=== PATIENT | female | born 1980 | race Caucasian/White ===

== ENCOUNTER 2016-11-21 17:21 | Emergency (ER) | payer OTHER ==
--- NOTE | 2016-11-21 18:14 | DIAGNOSTIC IMAGING REPORT ---
PROCEDURE: XR HAND 3 OR 4 VIEWS - RIGHT INDICATION: TRAUMA/INJURY TECHNIQUE: Four views. COMPARISON: None. FINDINGS: Soft tissue swelling around the third PIP joint. No fracture or dislocation. IMPRESSION: 1. No fracture or dislocation. Third PIP joint soft tissue swelling.
--- NOTE | 2016-11-21 18:33 | ED ORDER SUMMARY ---
..... Patient: SID CESPEDES OrderSheet [facility] VisitID: [id number] [address] [place] [address] 36y, F Registration Date/Time: 11/21/2016 ORDER SHEET Weight: 54.4 kg (stated) Allergies: Amoxicillin, Penicillins, morphine, Tramadol GENERAL ORDERS: Ice (17:44 11/21/2016 Mary R.N. verbal order read back to HBivens A.R.N.P.) (17:57 Mary R.N.) Hand 3 or 4V Right Urgent (17:45 11/21/2016 HBivens A.R.N.P.) (17:57 Mary R.N.) MEDICATION ORDERS: IV FLUIDS: ORDER SHEET NOTES: [Electronically signed by Radha Garber R.N. (18:45 11/21/2016)] [Electronically signed by Myrtle Arellano.R.N.P. (20:17 11/21/2016)] [Electronically locked/signed by Radha Garber R.N. (18:45 11/21/2016)]
--- NOTE | 2016-11-21 18:33 | ED CLINICAL REPORT ---
Clinical Report - Physicians/Mid Levels [facility] [address] [place] [address] 11/21/2016 17:23 Patient: SID CESPEDES Time Seen: 17:30; initial patient contact, initial documentation, patient care assumed. Arrived- By private vehicle. Historian- patient. HISTORY OF PRESENT ILLNESS Chief Complaint: Injury to the right hand. The injury happened just prior to arrival. Occurred at home. The patient sustained a moderate direct blow (fell on stairs, missed step, and hit hand on concrete stair). Patient is experiencing moderate pain. Patient denies injury to the head or neck. No other injury. REVIEW OF SYSTEMS The patient has had swelling. No tingling, numbness, weakness, foreign body or skin laceration. All systems otherwise negative, except as recorded above. PAST HISTORY See nurses notes. PROBLEMS: Abscess. Dental Caries. Dental Pain. Immunizations. Tooth abcess. --17:47 David Johnson RRobbN. ADDITIONAL SURGERIES: . Tubal Ligation. --17:47 David Johnson RRobbN. SOCIAL HISTORY Light tobacco smoker. No alcohol use or drug use. No recent travel. Is a local resident. FAMILY HISTORY No significant family medical history. ADDITIONAL NOTES The nursing notes have been reviewed with agreement regarding the chief complaint, HPI, ROS, PMH and patient medications and allergies. PHYSICAL EXAM Vital Signs: 11/21/2016 17:37 BP: 139/91. HR: 115. RR: 16. O2 saturation: 100%. Temp: 98.8 F. Pain level now: 10/10. Have been reviewed as abnormal and appear to be correct. Blood pressure normal. Tachycardic. Respiratory rate normal. Temperature normal. Oxygen saturation normal. Appearance: Alert. Oriented X3. No acute distress. Head: Head atraumatic. Eyes: Pupils equal, round and reactive to light. Eyes normal inspection. Respiratory: No respiratory distress. Skin: Skin warm and dry. Skin intact. Extremities: Wrist injury present. Hand injury present. Dorsal right hand: mild tenderness and swelling and small ecchymosis of the distal and ulnar aspect of the dorsal hand. Neurovascular intact distally. (tender, mild swelling and contusion noted near 5th knuckle). No erythema, laceration, abrasion, puncture wound or foreign body. No deformity. No limitation of extension. Hand and wrist exam otherwise negative. Extremities otherwise negative. Neuro, Vascular and Tendons: Vascular status intact. Sensation intact. Motor intact. Tendon function intact. Neuro: Oriented X 3. No motor deficit. No sensory deficit. Note: isolated injury to hand. LABS, X-RAYS, AND EKG X-Rays: Right hand. Rt Hand X-ray: (IMPRESSION: 1. No fracture or dislocation. Third PIP joint soft tissue swelling. Electronically Final signed by:Rogelio Clifford MD 11/21/2016 6:14:51 PM). The X-rays were interpreted by the radiologist and contemporaneously by me. PROGRESS AND PROCEDURES Course of Care: pt out in lobby, stating she can't take ultram, she is allergic to it, rx changed. Patient counseled in person regarding the patient's stable condition, test results and diagnosis. Differential Diagnosis: Other possible considerations: hand fx vs contusion. Above considerations are based on history, physical exam and laboratory data. Differential diagnosis was discussed with patient. Disposition: Discharged home in good and unchanged condition (18:20). Condition: good and stable. CLINICAL IMPRESSION Single contusion with soft tissue hematoma to the right hand. Fall on same level by slipping. INSTRUCTIONS Apply ice for 20 minutes four times a day for two days until better. Don't apply ice directly to skin. Elevate affected areas above chest level for two days until better. Warnings: GENERAL WARNINGS: Return or contact your physician immediately if your condition worsens or changes unexpectedly, if not improving as expected, or if other problems arise. Specifically return if problem worsens. Prescription Medications: Naproxen 500 mg tablets: take 1 orally every 12 hours as needed for pain. Dispense twenty (20). No refills. Gamaliel 5 mg / 325 mg tablets: take 1 orally every 6 hours as needed for pain. Dispense five (5). No refill. Follow-up: Follow up with your doctor in about one week even if well. Call for an appointment. Summary of care provided to patient. Understanding of the discharge instructions verbalized by patient. (Electronically signed by Myrtle Arellano A.R.N.P. 11/21/2016 20:17)
--- NOTE | 2016-11-21 18:33 | ED ORDER SUMMARY ---
..... Patient: SID CESPEDES OrderSheet [facility] VisitID: [id number] [address] [place] [address] 36y, F Registration Date/Time: 11/21/2016 ORDER SHEET Weight: 54.4 kg (stated) Allergies: Amoxicillin, Penicillins, morphine, Tramadol GENERAL ORDERS: Ice (17:44 11/21/2016 Mary R.N. verbal order read back to HBivens A.R.N.P.) (17:57 Mary R.N.) Hand 3 or 4V Right Urgent (17:45 11/21/2016 HBivens A.R.N.P.) (17:57 Mary R.N.) MEDICATION ORDERS: IV FLUIDS: ORDER SHEET NOTES: [Electronically signed by Radha Garber R.N. (18:45 11/21/2016)] [Electronically signed by Myrtle Arellano.R.N.P. (20:17 11/21/2016)] [Electronically locked/signed by Radha Garber R.N. (18:45 11/21/2016)]
--- NOTE | 2016-11-21 18:33 | ED NURSING NOTES ---
Clinical Report - Nurses [facility] [address] [place] [address] 11/21/2016 17:23 Patient: SID CESPEDES TRIAGE Triage time 17:35 Nov 21 2016. Acuity: LEVEL 3. Chief Complaint: INJURY TO RIGHT HAND. Alert. VENESSA COMA SCORE: [place] Coma Scale: 15- eyes open spontaneously (4); best verbal response- oriented x 4 (5); best motor response- obeys commands (6). --17:49 David Johnson R.N. 17:37 11/21/16. BP: 139/91. HR: 115. RR: 16. O2 saturation: 100% on room air. Temp: 98.8 F (oral). Pain level now: 02/17. --17:49 David Johnson R.N. Weight: 54.4 kg stated. Height/Length: 63 inches Per Patient. BMI: 21.2. --17:39 David Johnson R.N. Medications Ibuprofen Oral 800 mg, PRN. --17:41 David Johnson R.N. Medication/allergy information source: the patient. --17:49 David Johnson R.N. Allergies Amoxicillin. Definite Moderate(SOB, swelling) --17:42 David Johnson R.N. Penicillins.(SOB, swelling) --17:42 David Johnson R.N. morphine. --17:43 David Johnson R.N. Tramadol. --17:43 David Johnson R.N. History Arrived by private vehicle. Historian: patient. Accompanied by family and mother and daughter. Primary physician (none). ( GLF injuring (R) Forearm and (R) Hand going down the patio stairs.). This occurred (about 4 hours ago). Mechanism of injury: fell. She has had weakness of the right hand. 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 (last dose about 4 hours ago). PAST MEDICAL HX: Tetanus status: unknown. Immunizations: status is unknown. SOCIAL HX: Light tobacco smoker (cigarette)- less than 1/2 a pack per day. No alcohol use or drug use. No infectious disease exposure. ABUSE ASSESSMENT: No report of abuse. SELF HARM ASSESSMENT: A self harm assessment was performed. The patient answered "no" to the question "Have you recently felt down, depressed, or hopeless?" and "Have you noticed less interest or pleasure in doing things?". FALL RISK ASSESSMENT: Fall risk assessment completed. No fall risk identified. NUTRITIONAL RISK ASSESSMENT: The nutritional risk assessment revealed no deficiencies. LEARNING NEEDS ASSESSMENT: The learning needs assessment revealed no barriers. FUNCTIONAL ASSESSMENT: Functional assessment performed. 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 SKIN INTEGRITY ASSESSMENT: Skin integrity risk assessment completed. No skin integrity risk identified. --17:49 David Johnson R.N. PROBLEMS: Abscess. Dental Caries. Dental Pain. Immunizations. Tooth abcess. --17:47 David Johnson R.N. ADDITIONAL SURGERIES: . Tubal Ligation. --17:47 David Johnson R.N. Interventions ID and allergy band on patient. To treatment room. --17:49 David Johnson R.N. PHYSICAL ASSESSMENT Ambulatory to room. GENERAL / NEURO / PSYCH: Oriented X 4. Appears in pain. EXTREMITIES: Extremities exhibit normal ROM. Neuro-vascular status intact to the extremity. Right hand: tenderness and swelling. SKIN: Skin intact. Skin is warm and dry. She has an abrasion on the right hand. --17:51 David Johnson R.N. NURSING PROGRESS NOTES Cold pack applied to the right hand. Reassurance given to the patient. Patient identifiers checked. Call light placed in reach. Side rails up x 1. Patient ready for evaluation- chart flagged and SHIFT STACKER notified. --17:51 David Johnson R.N. 17:55 11/21/16. ( X-ray (R) Hand in room). --17:58 David Johnson R.N. DISPOSITION / DISCHARGE Departure time: 18:42 Nov 21 2016. Condition at departure: improved. No learning barriers present. Discharge instructions provided and reviewed with the patient. Reviewed warnings. Reviewed medication(s). Treatments reviewed. Reviewed referrals. Patient verbalized understanding. Written instructions provided in Hungarian. The patient was discharged home and accompanied by family. She left the Emergency Department ambulatory and via private vehicle. Family member driving. --18:45 Radha Garber R.N. 18:44 11/21/16. BP: 129/94. HR: 92. RR: 18. O2 saturation: 100%. Temp: 98.4 F. Pain level now 5/10. --18:45 Radha Garber R.N. Locked/Released at 11/21/2016 18:45 by Radha Garber R.N.
--- NOTE | 2016-11-21 18:33 | ED NURSING NOTES ---
Clinical Report - Nurses [facility] [address] [place] [address] 11/21/2016 17:23 Patient: SID CESPEDES TRIAGE Triage time 17:35 Nov 21 2016. Acuity: LEVEL 3. Chief Complaint: INJURY TO RIGHT HAND. Alert. VENESSA COMA SCORE: [place] Coma Scale: 15- eyes open spontaneously (4); best verbal response- oriented x 4 (5); best motor response- obeys commands (6). --17:49 David Johnson R.N. 17:37 11/21/16. BP: 139/91. HR: 115. RR: 16. O2 saturation: 100% on room air. Temp: 98.8 F (oral). Pain level now: 02/17. --17:49 David Johnson R.N. Weight: 54.4 kg stated. Height/Length: 63 inches Per Patient. BMI: 21.2. --17:39 David Johnson R.N. Medications Ibuprofen Oral 800 mg, PRN. --17:41 David Johnson R.N. Medication/allergy information source: the patient. --17:49 David Johnson R.N. Allergies Amoxicillin. Definite Moderate(SOB, swelling) --17:42 David Johnson R.N. Penicillins.(SOB, swelling) --17:42 David Johnson R.N. morphine. --17:43 David Johnson R.N. Tramadol. --17:43 David Johnson R.N. History Arrived by private vehicle. Historian: patient. Accompanied by family and mother and daughter. Primary physician (none). ( GLF injuring (R) Forearm and (R) Hand going down the patio stairs.). This occurred (about 4 hours ago). Mechanism of injury: fell. She has had weakness of the right hand. Treatment SEAL SKINNER: Ice and took ibuprofen. (last dose about 4 hours ago). PAST MEDICAL HX: Tetanus status: unknown. Immunizations: status is unknown. SOCIAL HX: Light tobacco smoker (cigarette)- less than 1/2 a pack per day. No alcohol use or drug use. No infectious disease exposure. ABUSE ASSESSMENT: No report of abuse. SELF HARM ASSESSMENT: A self harm assessment was performed. The patient answered "no" to the question "Have you recently felt down, depressed, or hopeless?" and "Have you noticed less interest or pleasure in doing things?". FALL RISK ASSESSMENT: Fall risk assessment completed. No fall risk identified. NUTRITIONAL RISK ASSESSMENT: The nutritional risk assessment revealed no deficiencies. LEARNING NEEDS ASSESSMENT: The learning needs assessment revealed no barriers. FUNCTIONAL ASSESSMENT: Functional assessment performed. 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 SKIN INTEGRITY ASSESSMENT: Skin integrity risk assessment completed. No skin integrity risk identified. --17:49 David Johnson R.N. PROBLEMS: Abscess. Dental Caries. Dental Pain. Immunizations. Tooth abcess. --17:47 David Johnson R.N. ADDITIONAL SURGERIES: . Tubal Ligation. --17:47 David Johnson R.N. Interventions ID and allergy band on patient. To treatment room. --17:49 David Johnson R.N. PHYSICAL ASSESSMENT Ambulatory to room. GENERAL / NEURO / PSYCH: Oriented X 4. Appears in pain. EXTREMITIES: Extremities exhibit normal ROM. Neuro-vascular status intact to the extremity. Right hand: tenderness and swelling. SKIN: Skin intact. Skin is warm and dry. She has an abrasion on the right hand. --17:51 David Johnson R.N. NURSING PROGRESS NOTES Cold pack applied to the right hand. Reassurance given to the patient. Patient identifiers checked. Call light placed in reach. Side rails up x 1. Patient ready for evaluation- chart flagged and SOCIAL WORK SUPERVISOR notified. --17:51 David Johnson R.N. 17:55 11/21/16. ( X-ray (R) Hand in room). --17:58 David Johnson R.N. DISPOSITION / DISCHARGE Departure time: 18:42 Nov 21 2016. Condition at departure: improved. No learning barriers present. Discharge instructions provided and reviewed with the patient. Reviewed warnings. Reviewed medication(s). Treatments reviewed. Reviewed referrals. Patient verbalized understanding. Written instructions provided in Yi. The patient was discharged home and accompanied by family. She left the Emergency Department ambulatory and via private vehicle. Family member driving. --18:45 Radha Garber R.N. 18:44 11/21/16. BP: 129/94. HR: 92. RR: 18. O2 saturation: 100%. Temp: 98.4 F. Pain level now 5/10. --18:45 Radha Garber R.N. Locked/Released at 11/21/2016 18:45 by Radha Garber R.N.
--- NOTE | 2016-11-21 20:18 | ED MAR SUMMARY ---
..... Medication Administration Record [facility] [address] [place] [id number] Patient: SID CESPEDES Visit ID: [id number] 36y, F Weight: 54.4 kg Height/Length: 63 in BMI: 21.2 ALLERGIES: morphine, Tramadol, Amoxicillin, Penicillins
--- NOTE | 2016-11-21 20:18 | ED MAR SUMMARY ---
..... Medication Administration Record [facility] [address] [place], [place] [id number] Patient: SID CESPEDES Visit ID: [id number] 36y, F Weight: 54.4 kg Height/Length: 63 in BMI: 21.2 ALLERGIES: morphine, Tramadol, Amoxicillin, Penicillins
--- NOTE | 2016-11-21 20:18 | ED MED RECONCILIATION SUMMARY ---
Patient: SID CESPEDES Medication Reconciliation Report [facility] VisitID: [id number] [address] [place] [address] 36y, F Registration Date/Time: 11/21/2016 Weight: 54.4 kg Height/Length: 63 in. BMI: 21.3 ALLERGIES: Amoxicillin, morphine, Penicillins, Tramadol The patient's Home Medications are listed below: THE FOLLOWING MEDICATIONS NEED TO BE RECONCILED: Ibuprofen Oral 800 mg, PRN The source(s) of the original Home Medication information: patient The following Medications were given to the patient in the Emergency Department: None. The following Medications were prescribed to the patient: Naproxen 500 mg tablets: take 1 orally every 12 hours as needed for pain. Dispense twenty (20). No refills. -- Myrtle Arellano, Meche.R.N.P. Blakeslee 5 mg / 325 mg tablets: take 1 orally every 6 hours as needed for pain. Dispense five (5). No refill. -- Myrtle Arellano, A.R.N.P.
--- NOTE | 2016-11-21 20:18 | ED DISCHARGE INSTRUCTIONS ---
Patient: SID CESPEDES General Instructions Merged With [facility] VisitID: [id number] [place] [address] 36y, F Registration Date/Time: 11/21/2016 Single contusion with soft tissue hematoma to the right hand. Fall on same level by slipping. INSTRUCTIONS Apply ice for 20 minutes four times a day for two days until better. Don't apply ice directly to skin. Elevate affected areas above chest level for two days until better. Warnings: GENERAL WARNINGS: Return or contact your physician immediately if your condition worsens or changes unexpectedly, if not improving as expected, or if other problems arise. Specifically return if problem worsens. Prescription Medications: Naproxen 500 mg tablets: take 1 orally every 12 hours as needed for pain. Dispense twenty (20). No refills. [place] 5 mg / 325 mg tablets: take 1 orally every 6 hours as needed for pain. Dispense five (5). No refill. Follow-up: Follow up with your doctor in about one week even if well. Call for an appointment. Summary of care provided to patient. Understanding of the discharge instructions verbalized by patient. ADDITIONAL INFORMATION Mechanical Fall You have had a fall today. It appears that the cause is mechanical. That means that you slipped, tripped or lost your balance. If your fall had been due to fainting or a seizure, further tests would be required. Home Care: Rest today and resume your normal activities when you are feeling back to normal. If you were injured during the fall, follow the advice from your doctor regarding care of your injury. You may use acetaminophen (Tylenol) or ibuprofen (Motrin, Advil) to control pain, unless another pain medicine was prescribed. [NOTE: If you have chronic liver or kidney disease or ever had a stomach ulcer or GI bleeding, talk with your doctor before using these medicines.] Fall Prevention: Was there anything that caused your fall that can be fixed, removed, or replaced? Make your home safe by keeping walkways clear of objects you may trip over. Use non-slip pads under rugs. Do not walk in poorly lit areas. Do not stand on chairs or wobbly ladders. Use caution when reaching overhead or looking upward. This position can cause a loss of balance. Be sure your shoes fit properly, have non-slip bottoms and are in good condition. Be cautious when going up and down curbs, and walking on uneven sidewalks. If your balance is poor, consider using a cane or walker. Stay as active as you can. Balance, flexibility, strength, and endurance all come from exercise. They all play a role in preventing falls. Follow Up with your doctor or as advised by our staff. Get Prompt Medical Attention if any of the following occur: Repeated mechanical falls, or unexplained falls Dizziness, fainting or seizure Severe headache Chest pain or shortness of breath Palpitations (very rapid or very slow or irregular heartbeat) Blood in vomit, stools (black or red color) Weakness of an arm or leg or one side of the face Difficulty with speech or vision Contusion: Hand You have a CONTUSION of your hand. This causes local pain, swelling and sometimes bruising. There are no broken bones. This injury takes from a few days to a few weeks to heal. Home Care: 1) Keep your arm elevated to reduce pain and swelling. This is very important during the first 48 hours. 2) Apply an ice pack (ice cubes in a plastic bag, wrapped in a towel) over the injured area for 20 minutes every 1-2 hours the first day. You should continue with ice packs 3-4 times a day for the next two days. Continue the use of ice packs for relief of pain and swelling as needed. 3) You may use acetaminophen (Tylenol) or ibuprofen (Motrin, Advil) to control pain, unless another pain medicine was prescribed. [ NOTE : If you have chronic liver or kidney disease or ever had a stomach ulcer or GI bleeding, talk with your doctor before using these medicines.] Follow Up with your doctor or this facility if you are not starting to improve within the next THREE days. [NOTE: If X-rays were taken, they will be reviewed by a radiologist. You will be notified of any new findings that may affect your care.] Get Prompt Medical Attention if any of the following occur: -- Pain or swelling increases -- Redness, warmth or drainage -- Hand or fingers becomes cold, blue, numb or tingly Naproxen Sodium Oral tablet What is this medicine? NAPROXEN (na PROX en) is a non-steroidal anti-inflammatory drug (NSAID). It is used to reduce swelling and to treat pain. This medicine may be used for dental pain, headache, or painful monthly periods. It is also used for painful joint and muscular problems such as arthritis, tendinitis, bursitis, and gout. How should I use this medicine? Take this medicine by mouth with a glass of water. Follow the directions on the prescription label. Take it with food if your stomach gets upset. Try to not lie down for at least 10 minutes after you take it. Take your medicine at regular intervals. Do not take your medicine more often than directed. Long-term, continuous use may increase the risk of heart attack or stroke. A special MedGuide will be given to you by the pharmacist with each prescription and refill. Be sure to read this information carefully each time. Talk to your distribution field engineer regarding the use of this medicine in children. Special care may be needed. What side effects may I notice from receiving this medicine? Side effects that you should report to your doctor or health child care assistant as soon as possible: black or bloody stools, blood in the urine or vomit blurred vision chest pain difficulty breathing or wheezing nausea or vomiting severe stomach pain skin rash, skin redness, blistering or peeling skin, hives, or itching slurred speech or weakness on one side of the body swelling of eyelids, throat, lips unexplained weight gain or swelling unusually weak or tired yellowing of eyes or skin Side effects that usually do not require medical attention (report to your doctor or health child care assistant if they continue or are bothersome): constipation headache heartburn What may interact with this medicine? alcohol aspirin cidofovir diuretics lithium methotrexate other drugs for inflammation like ketorolac or prednisone pemetrexed probenecid warfarin What if I miss a dose? If you miss a dose, take it as soon as you can. If it is almost time for your next dose, take only that dose. Do not take double or extra doses. Where should I keep my medicine? Keep out of the reach of children. Store at room temperature between 15 and 30 degrees C (59 and 86 degrees F). Keep container tightly closed. Throw away any unused medicine after the expiration date. What should I tell my health care provider before I take this medicine? They need to know if you have any of these conditions: asthma cigarette smoker drink more than 3 alcohol containing drinks a day heart disease or circulation problems such as heart failure or leg edema (fluid retention) high blood pressure kidney disease liver disease stomach bleeding or ulcers an unusual or allergic reaction to naproxen, aspirin, other NSAIDs, other medicines, foods, dyes, or preservatives or trying to get breast-feeding What should I watch for while using this medicine? Tell your doctor or health child care assistant if your pain does not get better. Talk to your doctor before taking another medicine for pain. Do not treat yourself. This medicine does not prevent heart attack or stroke. In fact, this medicine may increase the chance of a heart attack or stroke. The chance may increase with longer use of this medicine and in people who have heart disease. If you take aspirin to prevent heart attack or stroke, talk with your doctor or health child care assistant. Do not take other medicines that contain aspirin, ibuprofen, or naproxen with this medicine. Side effects such as stomach upset, nausea, or ulcers may be more likely to occur. Many medicines available without a prescription should not be taken with this medicine. This medicine can cause ulcers and bleeding in the stomach and intestines at any time during treatment. Do not smoke cigarettes or drink alcohol. These increase irritation to your stomach and can make it more susceptible to damage from this medicine. Ulcers and bleeding can happen without warning symptoms and can cause . You may get drowsy or dizzy. Do not drive, use machinery, or do anything that needs mental alertness until you know how this medicine affects you. Do not stand or sit up quickly, especially if you are an older patient. This reduces the risk of dizzy or fainting spells. This medicine can cause you to bleed more easily. Try to avoid damage to your teeth and gums when you brush or floss your teeth. Hydrocodone Bitartrate, Acetaminophen Oral tablet What is this medicine? ACETAMINOPHEN; HYDROCODONE (a set a SHARONDA lucretia fen; derrek droe KOE done) is a pain reliever. It is used to treat mild to moderate pain. How should I use this medicine? Take this medicine by mouth. Swallow it with a full glass of water. Follow the directions on the prescription label. If the medicine upsets your stomach, take the medicine with food or milk. Do not take more than you are told to take. Talk to your distribution field engineer regarding the use of this medicine in children. This medicine is not approved for use in children. What side effects may I notice from receiving this medicine? Side effects that you should report to your doctor or health child care assistant as soon as possible: allergic reactions like skin rash, itching or hives, swelling of the face, lips, or tongue breathing problems confusion feeling faint or lightheaded, falls stomach pain yellowing of the eyes or skin Side effects that usually do not require medical attention (report to your doctor or health child care assistant if they continue or are bothersome): nausea, vomiting stomach upset What may interact with this medicine? alcohol antihistamines isoniazid medicines for depression, anxiety, or psychotic disturbances medicines for sleep muscle relaxants naltrexone narcotic medicines (opiates) for pain phenobarbital ritonavir tramadol What if I miss a dose? If you miss a dose, take it as soon as you can. If it is almost time for your next dose, take only that dose. Do not take double or extra doses. Where should I keep my medicine? Keep out of the reach of children. This medicine can be abused. Keep your medicine in a safe place to protect it from theft. Do not share this medicine with anyone. Selling or giving away this medicine is dangerous and against the law. Store at room temperature between 15 and 30 degrees C (59 and 86 degrees F). Protect from light. Keep container tightly closed. Throw away any unused medicine after the expiration date. Discard unused medicine and used packaging carefully. Pets and children can be harmed if they find used or lost packages. What should I tell my health care provider before I take this medicine? They need to know if you have any of these conditions: brain tumor Crohn's disease, inflammatory bowel disease, or ulcerative colitis drink more than 3 alcohol-containing drinks per day drug abuse or addiction head injury heart or circulation problems kidney disease or problems going to the bathroom liver disease lung disease, asthma, or breathing problems an unusual or allergic reaction to acetaminophen, hydrocodone, other opioid analgesics, other medicines, foods, dyes, or preservatives or trying to get breast-feeding What should I watch for while using this medicine? Tell your doctor or health child care assistant if your pain does not go away, if it gets worse, or if you have new or a different type of pain. You may develop tolerance to the medicine. Tolerance means that you will need a higher dose of the medicine for pain relief. Tolerance is normal and is expected if you take the medicine for a long time. Do not suddenly stop taking your medicine because you may develop a severe reaction. Your body becomes used to the medicine. This does NOT mean you are addicted. Addiction is a behavior related to getting and using a drug for a non-medical reason. If you have pain, you have a medical reason to take pain medicine. Your doctor will tell you how much medicine to take. If your doctor wants you to stop the medicine, the dose will be slowly lowered over time to avoid any side effects. You may get drowsy or dizzy when you first start taking the medicine or change doses. Do not drive, use machinery, or do anything that may be dangerous until you know how the medicine affects you. Stand or sit up slowly. There are different types of narcotic medicines (opiates) for pain. If you take more than one type at the same time, you may have more side effects. Give your health care provider a list of all medicines you use. Your doctor will tell you how much medicine to take. Do not take more medicine than directed. Call emergency for help if you have problems breathing. The medicine will cause constipation. Try to have a bowel movement at least every 2 to 3 days. If you do not have a bowel movement for 3 days, call your doctor or health child care assistant. Too much acetaminophen can be very dangerous. Do not take Tylenol (acetaminophen) or medicines that contain acetaminophen with this medicine. Many non-prescription medicines contain acetaminophen. Always read the labels carefully. You have been given the following additional information: Fall, Mechanical Contusion, Hand Naproxen Sodium Oral tablet Hydrocodone Bitartrate, Acetaminophen Oral tablet (Electronically signed by Myrtle Arellano A.R.N.P. 11/21/2016 20:17)
--- NOTE | 2016-11-21 20:18 | ED MED RECONCILIATION SUMMARY ---
Patient: SID CESPEDES Medication Reconciliation Report [facility] VisitID: [id number] [address] [place] [address] 36y, F Registration Date/Time: 11/21/2016 Weight: 54.4 kg Height/Length: 63 in. BMI: 21.3 ALLERGIES: Amoxicillin, morphine, Penicillins, Tramadol The patient's Home Medications are listed below: THE FOLLOWING MEDICATIONS NEED TO BE RECONCILED: Ibuprofen Oral 800 mg, PRN The source(s) of the original Home Medication information: patient The following Medications were given to the patient in the Emergency Department: None. The following Medications were prescribed to the patient: Naproxen 500 mg tablets: take 1 orally every 12 hours as needed for pain. Dispense twenty (20). No refills. -- Myrtle Arellano, Meche.R.N.P. [place] 5 mg / 325 mg tablets: take 1 orally every 6 hours as needed for pain. Dispense five (5). No refill. -- Myrtle Arellano, A.R.N.P.
== END 2016-11-21 18:42 | disposition home or self-care (01) ==
LOC: ED SRH 17:21
DX: S60.221A Contusion of right hand, initial encounter (principal); W10.9XXA Fall (on) (from) unspecified stairs and steps, initial encounter; Y93.9 Activity, unspecified; Y92.019 Unspecified place in single-family (private) house as the place of occurrence of the external cause; Y99.9 Unspecified external cause status; F17.210 Nicotine dependence, cigarettes, uncomplicated; Z88.0 Allergy status to penicillin; Z88.5 Allergy status to narcotic agent